=== PATIENT | female | born 1945 | race Caucasian/White ===

== ENCOUNTER 2024-07-20 23:03 | Emergency (ER) | payer MEDICARE, BC, MEDICAID ==
[~2024-07-20] VITALS: Ht 160 cm; Wt 81.6 kg
[2024-07-20] MEDS ORDERED: TDAP [DIPH/PERTUSSIS/TET] 0.5 ML VIAL IM ONE (23:44)
[2024-07-20] MEDS: TDAP [DIPH/PERTUSSIS/TET] 0.5 ML VIAL IM ONE (23:49)
[2024-07-20] MEDS: LIDOCAINE 1%-EPI 1:100,000 20 ML VIAL TP ONE (23:51)
[2024-07-21 02:31] VITALS: BP 109/65; TEMP 98.2; O2SAT 95
== END 2024-07-21 02:31 | disposition home or self-care (01) ==
LOC: EDBD 23:11 → ER 23:11
DX: S81.811A Laceration without foreign body, right lower leg, initial encounter (principal); E11.9 Type 2 diabetes mellitus without complications; I10 Essential (primary) hypertension; J44.9 Chronic obstructive pulmonary disease, unspecified; Z79.01 Long term (current) use of anticoagulants; W45.8XXA Other foreign body or object entering through skin, initial encounter; Y93.89 Activity, other specified; Y92.091 Bathroom in other non-institutional residence as the place of occurrence of the external cause; Y99.8 Other external cause status
CPT/HCPCS: 90715